=== PATIENT | female | born 1965 ===

== ENCOUNTER 2019-01-24 16:35 | Emergency (ER) | payer OTHER ==
[2019-01-24 17:03] VITALS: RESP 16; TEMP 98.1; O2SAT 97
[2019-01-24] MEDS ORDERED: Sodium Chloride 0.9% 1,000 ML IV STA (17:35)
--- NOTE | 2019-01-24 17:37 | ED PDOC ---
HPI: Abdomen Time Seen by Provider: 01/24/19 17:30 Chief Complaint (Nursing): GI Problem History Per: Patient Onset/Duration Of Symptoms: Days (5) Current Symptoms Are (Timing): Intermittent Episodes Severity: Mild Quality Of Discomfort: Unable To Describe Associated Symptoms: denies: Fever, Nausea, Vomiting Exacerbating Factors: None Alleviating Factors: None Additional Complaint(s): Diarrhea x 5 days. Initially had lower abd crampy pain but pain has sinxce resolved. Denies fever, vomiting or blood in stool. Recently returned from trip to [facility]. Past Medical History Vital Signs: Last Vital Signs Temp 98.1 F 01/24/19 17:02 Pulse 75 01/24/19 17:02 Resp 16 01/24/19 17:02 BP 151/91 H 01/24/19 17:02 Pulse Ox 97 01/24/19 17:02 Primary Care Provider: Alvarado Gutiérrez - Surgical History Other surgeries: S/p removal pancreatic tumor - Family History Family History: States: Unknown Family Hx - Home Medications Home Medications: Ambulatory Orders Medication Instructions Recorded Bismuth Subsalicylate [Pepto 262 mg PO Q4H PRN #1 bottle 11/04/14 Bismol] Dicyclomine [Bentyl] 20 mg PO BID #30 tab 01/24/19 Lactobacillus Acidophilus 0.5 mg PO DAILY #30 tablet 01/24/19 [Acidophilus Probiotic] - Allergies Allergies/Adverse Reactions: Allergies Allergy/AdvReac Type Severity Reaction Status Date / Time No Known Allergies Allergy Verified 01/24/19 17:02 Review of Systems ROS Statement: Except As Marked, All Systems Reviewed And Found Negative Constitutional: Negative for: Fever Gastrointestinal: Positive for: Abdominal Pain, Diarrhea. Negative for: Vomiting, Melena, Hematochezia Physical Exam - Reviewed Nursing Documentation Reviewed: Yes Vital Signs Reviewed: Yes - Physical Exam Appears: Positive for: Non-toxic, No Acute Distress Head Exam: Positive for: ATRAUMATIC, NORMAL INSPECTION, NORMOCEPHALIC Skin: Positive for: Normal Color, Warm, DRY Eye Exam: Positive for: EOMI, Normal appearance, PERRL ENT: Positive for: Normal ENT Inspection Neck: Positive for: Normal, Painless ROM Cardiovascular/Chest: Positive for: Regular Rate, Rhythm Respiratory: Positive for: CNT, Normal Breath Sounds Gastrointestinal/Abdominal: Positive for: Normal Exam, Soft Back: Positive for: Normal Inspection Extremity: Positive for: Normal ROM Neurological/Psych: Positive for: Awake, Alert, Normal Tone - Laboratory Results Result Diagrams: 01/24/19 18:08 01/24/19 18:08 - ECG O2 Sat by Pulse Oximetry: 97 Disposition - Clinical Impression Clinical Impression: Diarrhea - Patient ED Disposition Is Patient to be Admitted: Transfer of Care - Disposition Referrals: Alvarado Gutiérrez MD [Staff Provider] - Disposition: Transfer of Care Disposition Time: 19:00 Condition: IMPROVED Prescriptions: Dicyclomine [Bentyl] 20 mg PO BID #30 tab Lactobacillus Acidophilus [Acidophilus Probiotic] 0.5 mg PO DAILY #30 tablet Instructions: Diarrhea in Adolescents and Adults Forms: [facility] (Frisian) Print Language: KYRGYZ Patient Signed Over To: Daquan Fair (Pending reeval)
[2019-01-24 18:19] LABS: VENOUS BLOOD GAS BASE EXCESS 3.5 mmol/L (0.0-2.0); VENOUS BLOOD GAS PCO2 47 mmHg (40-60); VENOUS BLOOD GAS PO2 32 mm/Hg (30-55)
[2019-01-24 18:26] LABS: ALB/GLOB RATIO 1.4 (1.0-2.1); ALBUMIN 4.3 g/dL (3.5-5.0); ALT/SGPT 68 U/L (9-52); AST/SGOT 42 U/L (14-36); BLOOD UREA NITROGEN 14 mg/dl (7-17); CALCIUM 9.4 mg/dL (8.4-10.2); GFR NON-AFRICAN AMERICAN > 60; LIPASE 119 U/L (23-300)
[2019-01-24 18:27] LABS: BASO % 0.8 % (0.0-2.0); EOS # 0.1 K/uL (0.0-0.7); HEMOGLOBIN 14.5 g/dL (12.0-16.0); LYMPH # 2.2 K/uL (1.0-4.3); LYMPH % 39.6 % (20.0-40.0); MEAN CELL VOLUME 85.1 fl (81.0-99.0); MEAN CORPUSCULAR HEMOGLOBIN 28.6 pg (27.0-31.0); MEAN CORPUSCULAR HGB CONC 33.7 g/dL (33.0-37.0); MEAN PLATELET VOLUME 8.8 fl (7.2-11.7); MONO # 0.6 K/uL (0.0-0.8); MONO % 10.2 % (0.0-10.0); NEUT # 2.6 K/uL (1.8-7.0); NEUT % 47.4 % (50.0-75.0); NRBC % 0.1 % (0.0-0.0); RBC 5.08 Mil/uL (3.80-5.20); RED CELL DISTRIBUTION WIDTH 13.4 % (11.5-14.5); WHITE BLOOD COUNT 5.5 K/uL (4.8-10.8)
[2019-01-24] MEDS ORDERED: Iohexol 300 100 ML IJ ONE (18:33)
[2019-01-24] MEDS ORDERED: Sodium Chloride 0.9% 50 ML IV ONE (18:33)
--- NOTE | 2019-01-24 19:02 | CT ---
Date of service: 01/24/2019 PROCEDURE: CT Abdomen and Pelvis with contrast HISTORY: Diarrhea and abdominal pain. COMPARISON: None. TECHNIQUE: Intravenous contrast dose: 95 cc Omnipaque 300. Radiation dose: Total exam DLP = 781.31 mGy-cm. This CT exam was performed using one or more of the following dose reduction techniques: Automated exposure control, adjustment of the mA and/or kV according to patient size, and/or use of iterative reconstruction technique. FINDINGS: LOWER THORAX: Unremarkable. LIVER: Unremarkable. No gross lesion or ductal dilatation. GALLBLADDER AND BILE DUCTS: Markedly distended gallbladder. Gallstones are not identified. No evidence of gallbladder wall thickening or pericholecystic fluid. PANCREAS: Markedly atrophic body and tail of pancreas. The pancreatic duct is dilated. Maximum diameter of the pancreas proximal to the atrophy and ductal dilatation 1.5 x 1.7 cm. Normal pancreatic a cinder appearance not evident. SPLEEN: Unremarkable. ADRENALS: Unremarkable. No mass. KIDNEYS AND URETERS: Unremarkable. No hydronephrosis. No solid mass. VASCULATURE: Atherosclerotic calcification and mural plaque present. Findings are seen throughout the aorta which is non aneurysmal. BOWEL: Fluid-filled/distended stomach. Fluid-filled colon and small bowel consistent with diarrheal state. Diverticulosis without an acute inflammatory component or other associated pathologic process. No mechanical obstructing lesions noted. APPENDIX: A normal appendix is visualized in it's entirety. PERITONEUM: Unremarkable. No free fluid. No free air. LYMPH NODES: Unremarkable. No enlarged lymph nodes. BLADDER: Unremarkable. REPRODUCTIVE: Unremarkable. BONES: No acute fracture. OTHER FINDINGS: None. IMPRESSION: 1. Fluid-filled colon and small bowel without mechanical obstructing lesion. 2. Markedly distended stomach without obstructing lesion. 3. Marked atrophy of the pancreatic body and tail with dilatation of the pancreatic duct. There is a abnormal focus in the head of the pancreas measuring 1.5 x 1.8 cm. Follow-up recommendation: Either triple phase CT or abdominal MRI recommended for further evaluation of the pancreas.
--- NOTE | 2019-01-24 21:37 | ED PDOC ---
- Laboratory Results Result Diagrams: 01/24/19 18:08 01/24/19 18:08 Lab Results: pO2 32 mm/Hg (30-55) 01/24/19 18:16 VBG pH 7.40 (7.32-7.43) 01/24/19 18:16 VBG pCO2 47 mmHg (40-60) 01/24/19 18:16 VBG HCO3 26.7 mmol/L 01/24/19 18:16 VBG Total CO2 30.5 mmol/L (22-28) H 01/24/19 18:16 VBG O2 Sat (Calc) 65.3 % (40-65) H 01/24/19 18:16 VBG Base Excess 3.5 mmol/L (0.0-2.0) H 01/24/19 18:16 VBG Potassium 3.2 mmol/L (3.6-5.2) L 01/24/19 18:16 Sodium 139.0 mmol/L (132-148) 01/24/19 18:16 Chloride 105.0 mmol/L (98-107) 01/24/19 18:16 Glucose 152 mg/dL (65-105) H 01/24/19 18:16 Lactate 2.5 mmol/L (0.7-2.1) H 01/24/19 18:16 FiO2 21.0 % 01/24/19 18:16 Total Bilirubin 0.3 mg/dl (0.2-1.3) 01/24/19 18:08 AST 42 U/L (14-36) H 01/24/19 18:08 ALT 68 U/L (9-52) H D 01/24/19 18:08 Alkaline Phosphatase 93 U/L (38-126) 01/24/19 18:08 Total Protein 7.2 G/DL (6.3-8.2) 01/24/19 18:08 Albumin 4.3 g/dL (3.5-5.0) 01/24/19 18:08 Globulin 3.0 gm/dL (2.2-3.9) 01/24/19 18:08 Albumin/Globulin Ratio 1.4 (1.0-2.1) 01/24/19 18:08 Lipase 119 U/L (23-300) 01/24/19 18:08 - ECG O2 Sat by Pulse Oximetry: 97 Pulse Ox Interpretation: Normal Medical Decision Making Medical Decision MakinPM Jonorenetta Interpeter Used for Macedonian: [id number] Signed out to me by Dr. Gomes pending re-eval and discussion with Dr. Gutiérrez Re-evaluated patient at the bedside who states she's feeling much better Discussed the results of the CT including the possibility of new growths on her pancreas Patient states she was supposed to followup with her surgeon/oncologist at [place] but never did. 9PM Case was discussed with Dr. Gutiérrez who states that the patient can followup in [facility] tomorrow for additional outpatient workup. Patient very well appearing, stable for discharge, no signs of SIRS/Sepsis. Disposition - Clinical Impression Clinical Impression: Diarrhea - POA Present On Arrival: None - Disposition Referrals: Alvarado Gutiérrez MD [Staff Provider] - Disposition: Routine/Home Disposition Time: 21:00 Condition: IMPROVED Prescriptions: Dicyclomine [Bentyl] 20 mg PO BID #30 tab Lactobacillus Acidophilus [Acidophilus Probiotic] 0.5 mg PO DAILY #30 tablet Instructions: Diarrhea in Adolescents and Adults Forms: [facility] (Telugu) Print Language: GREEK
[2019-01-24 23:57] VITALS: BP 141/84; PULSE 84
== END 2019-01-24 21:43 | disposition home or self-care (01) ==
LOC: H.ER 16:35
DX: R19.7 Diarrhea, unspecified (principal)
CPT/HCPCS: 74177; 80053; 82803; 83690; 85025; 87040; 99283; J7030; Q9967